=== PATIENT | male | born 2005 | race Two or more races ===

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

== ENCOUNTER 2023-07-14 13:52 | Emergency (ER) | payer OTHER, MEDICAID ==
[~2023-07-14] VITALS: Ht 180.3 cm; Wt 72.9 kg
[~2023-07-14 13:52] MED LIST: ONDA-144 PO
[2023-07-14] MEDS ORDERED: KETOROLAC TROMETH 60MG/2ML VIAL IM ONE (15:15)
[2023-07-14 15:17] LABS: Urine WBC None Seen /hpf (0 - 3)
[2023-07-14 15:23] LABS: Urine Bacteria NONE SEEN /hpf (None Seen); Urine Blood Negative /uL (Negative); Urine Clarity Clear (Clear); Urine Color Colorless (Yellow); Urine Protein, UAD Negative (Negative); Urine Specific Gravity 1.004 (1.001-1.035); Urine Urobilinogen Normal (Negative)
[2023-07-14] MEDS ORDERED: ACET500T58 PO ×2 (16:06)
[2023-07-14] MEDS ORDERED: IBUP-1455 PO ×2 (16:06)
[2023-07-14 16:18] VITALS: BP 132/58; PULSE 71; RESP 18; TEMP 98.3; O2SAT 100
[2023-07-15] MEDS ORDERED: IBUP-1455 PO (16:20)
[2023-07-15] MEDS ORDERED: ACET500T58 PO (16:20)
== END 2023-07-14 16:19 | disposition home or self-care (01) ==
LOC: ER 13:52
DX: S39.012A Strain of muscle, fascia and tendon of lower back, initial encounter (principal); F15.90 Other stimulant use, unspecified, uncomplicated; Z98.890 Other specified postprocedural states; Z79.899 Other long term (current) drug therapy; X50.3XXA Overexertion from repetitive movements, initial encounter; Y93.89 Activity, other specified; Y92.89 Other specified places as the place of occurrence of the external cause; Y99.8 Other external cause status
CPT/HCPCS: 72100; 81001; 96372; 99284; J1885